=== PATIENT | male | born 1975 | race Two or more races ===

== ENCOUNTER 2018-08-10 11:55 | Inpatient (IN) | payer OTHER ==
[~2018-08-10] VITALS: Ht 180.3 cm; Wt 87.1 kg
[2018-08-10] MEDS ORDERED: PNEU16DI2 (13:31)
== END 2018-08-18 20:33 | disposition home or self-care (01) | DRG 331 ==
LOC: SURH 12:45 → EDSTATUS 12:45 → ADM 12:45 → O/R 08-16 06:34 → SURG 08-16 06:34 → SURH 08-16 07:00 → SURG 08-16 14:02
PROVIDERS: ADMIT Colon & Rectal Surgery
PROC: 0DJD8ZZ Inspection of Lower Intestinal Tract, Via Natural or Artificial Opening Endoscopic (ICD-10-PCS; 2018-08-16)
PROC: 0DTN4ZZ Resection of Sigmoid Colon, Percutaneous Endoscopic Approach (ICD-10-PCS; principal; 2018-08-16 07:00)
DX: K57.32 Diverticulitis of large intestine without perforation or abscess without bleeding (principal); E16.1 Other hypoglycemia

== ENCOUNTER 2020-02-16 09:51 | Day surgery (SDC) | payer OTHER ==
[~2020-02-16 09:51] MED LIST: PNEU16DI2
== END 2020-02-16 14:40 | disposition home or self-care (01) ==
LOC: AMB-ENDOS 09:51
PROVIDERS: ATTEND Colon & Rectal Surgery
DX: K57.32 Diverticulitis of large intestine without perforation or abscess without bleeding (principal); K64.1 Second degree hemorrhoids; Z20.828 Contact with and (suspected) exposure to other viral communicable diseases